=== PATIENT | male | born 1935 | race Caucasian/White ===

== ENCOUNTER 2017-04-29 14:31 | Inpatient (IN) | payer MEDICARE, BC, OTHER ==
[~2017-04-29] VITALS: Ht 180.3 cm; Wt 83.4 kg
--- NOTE | 2017-04-29 14:56 | PD ---
HPI Chief Complaint: Generalized Weakness Time Seen by Provider: 14:44 Travel History International Travel<30 days: No Contact w/Intl Traveler<30days: No History of Present Illness HPI Mr. Tim Trinidad is an 81y white male arrived to the emergency department via EMS for weakness with an onset about 1 hour ago. 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 He is mobile only wheelchair. Patient also has a history of seizures since his stroke along with hypertension and depression. EMS states that he did not have LOC, only takes aspirin as a blood thinner. He had a systolic blood pressure of 70 and increased to 130 after 500 cc bolus normal saline by EMS. His blood sugar was 105. His son walks in to the room and is able to give me a little more information about this patient. [facility] Social History Tobacco Use: No Allergies-Medications (Allergen,Severity, Reaction): Coded Allergies: No Known Allergies (Unverified , 04/29/17) Reported Meds & Prescriptions Reported Meds & Active Scripts Active Reported Gabapentin 300 Mg Cap 300 Mg PO BID Keppra (Levetiracetam) 500 Mg Tab 500 Mg PO DAILY Aspirin 325 Mg Tab 325 Mg PO DAILY Review of Systems Except as stated in HPI: all other systems reviewed are Neg Physical Exam Narrative 81-year-old white male well-developed well-nourished in no apparent distress aphasic SKIN: Focused skin assessment warm/dry. HEAD: Atraumatic. Normocephalic. EYES: Pupils with anisocoria, reactive to light and accommodating, No scleral icterus. No injection or drainage. ENT: No nasal bleeding or discharge. Mucous membranes pink and moist. NECK: Trachea midline. No JVD. CARDIOVASCULAR: Regular rate and rhythm. No murmur appreciated. RESPIRATORY: No accessory muscle use. Clear to auscultation. Breath sounds equal bilaterally. GASTROINTESTINAL: Abdomen soft, non-tender, nondistended. Hepatic and splenic margins not palpable. MUSCULOSKELETAL: No obvious deformities. No clubbing. No cyanosis. No edema. Lordotic posture. NEUROLOGICAL: Awake and alert. No obvious cranial nerve deficits. Aphasic, Difficulty following commands secondary to weakness but pt understands commands. Motor deficits upper left extremity 3/5 r, lower extremity 4/5 at initial assessment PSYCHIATRIC: Appropriate mood and affect; insight and judgment normal. Data Data Last Documented VS Vital Signs Date Time Temp Pulse Resp B/P (MAP) Pulse Ox O2 Delivery O2 Flow Rate FiO2 04/29/17 19:12 86 18 148/98 (115) 99 18 161/103 (122) 04/29/17 15:35 98 Room Air 04/29/17 14:58 98.5 Orders Orders Electrocardiogram (04/29/17 14:48) Complete Blood Count With Diff (04/29/17 14:48) Comprehensive Metabolic Panel (04/29/17 14:48) Act Partial Throm Time (Ptt) (04/29/17 14:48) Prothrombin Time / Inr (Pt) (04/29/17 14:48) Urinalysis - C+S If Indicated (04/29/17 14:48) Chest, Single Ap (04/29/17 14:48) Ct Brain W/O Iv Contrast(Rout) (04/29/17 14:48) Blood Glucose (04/29/17 14:48) Ecg Monitoring (04/29/17 14:48) Iv Access Insert/Monitor (04/29/17 14:48) Oximetry (04/29/17 14:48) Orthostatic Vital Signs (04/29/17 14:48) Sodium Chlorid 0.9% 500 Ml Inj (Ns 500 M (04/29/17 15:30) Potassium Chloride (Kcl) (04/29/17 16:00) Potassium Chloride (Kcl) (04/29/17 16:00) Admit Order (Ed Use Only) (04/29/17 19:18) Labs Laboratory Tests Test 04/29/17 15:04 04/29/17 16:42 White Blood Count 11.7 TH/MM3 Red Blood Count 4.44 MIL/MM3 Hemoglobin 14.0 GM/DL Hematocrit 40.9 % Mean Corpuscular Volume 92.2 FL Mean Corpuscular Hemoglobin 31.5 PG Mean Corpuscular Hemoglobin Concent 34.2 % Red Cell Distribution Width 13.6 % Platelet Count 261 TH/MM3 Mean Platelet Volume 7.8 FL Neutrophils (%) (Auto) 81.2 % Lymphocytes (%) (Auto) 11.7 % Monocytes (%) (Auto) 6.1 % Eosinophils (%) (Auto) 0.8 % Basophils (%) (Auto) 0.2 % Neutrophils # (Auto) 9.5 TH/MM3 Lymphocytes # (Auto) 1.4 TH/MM3 Monocytes # (Auto) 0.7 TH/MM3 Eosinophils # (Auto) 0.1 TH/MM3 Basophils # (Auto) 0.0 TH/MM3 CBC Comment DIFF FINAL Differential Comment Prothrombin Time 11.3 SEC Prothromb Time International Ratio 1.0 RATIO Activated Partial Thromboplast Time 19.1 SEC Blood Urea Nitrogen 17 MG/DL Creatinine 1.23 MG/DL Random Glucose 111 MG/DL Total Protein 6.4 GM/DL Albumin 3.3 GM/DL Calcium Level 8.5 MG/DL Alkaline Phosphatase 60 U/L Aspartate Amino Transf (AST/SGOT) 19 U/L Alanine Aminotransferase (ALT/SGPT) 21 U/L Total Bilirubin 0.6 MG/DL Sodium Level 142 MEQ/L Potassium Level 2.6 MEQ/L Chloride Level 106 MEQ/L Carbon Dioxide Level 26.1 MEQ/L Anion Gap 10 MEQ/L Estimat Glomerular Filtration Rate 51 ML/MIN Urine Color YELLOW Urine Turbidity CLEAR Urine pH 6.5 Urine Specific [place] 1.011 Urine Protein TRACE mg/dL Urine Glucose (UA) NEG mg/dL Urine Ketones NEG mg/dL Urine Occult Blood MOD Urine Nitrite NEG Urine Bilirubin NEG Urine Urobilinogen LESS THAN 2.0 MG/DL Urine Leukocyte Esterase NEG Urine RBC LESS THAN 1 /hpf Urine Squamous Epithelial Cells <1 /hpf Urine Hyaline Casts 4 /lpf Microscopic Urinalysis Comment CULT NOT INDICATED MDM Medical Decision Making Medical Screen Exam Complete: Yes Emergency Medical Condition: Yes Differential Diagnosis CVA versus TIA versus generalized weakness versus hyoglycemia Narrative Course Mr. Tim Trinidad, 1935, is an 81y white male arrived to the emergency department via EMS for weakness with an onset about 1 hour ago. 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 He is mobile only via wheelchair, according to pt. Patient also has a history of seizures since his stroke along with hypertension and depression. EMS states that he did not have LOC, only takes aspirin as a blood thinner. He had a systolic blood pressure of 70 and increased to 130 after 500 cc bolus normal saline by EMS. His blood sugar was 105. His son walked in to the room and was able to tell me a little more information about this patient. His son seems to know a good amount about his father. Physical Exam: Pt has trouble taking deep breaths and may be developing PNA vs atelectasis Imaging: no acute process. Labs: Potassium at 2.6. Given 40mEq Potassium with mild improvement in symptoms. Orthostatics will be done laying down and sitting. Dr. Doran and I attempted to get the patient out of bed but was unsuccessful. We will wait for son to return for another attempt. Pt wants to go home and not stay in the hospital tonight however, after a second attempt to get pt out of bed, he was unable to sit up or get out of bed. His PCP is Dr. Sow in [place]. Physician Communication Physician Communication I spoke with Dr Loja and she agreed to take patient as Obs. Diagnosis Primary Impression: Hypokalemia Additional Impression: Generalized weakness Admitting Information Admitting Physician Requests: Admit Condition: Stable Mercy Noel Apr 29, 2017 14:56
[2017-04-29 14:58] VITALS: BP 138/64; PULSE 86; RESP 18; TEMP 98.5; O2SAT 98
--- NOTE | 2017-04-29 15:04 | PD ---
Physical Exam Date Seen by Provider: Apr 29, 2017 Narrative Profound weakness Data Data Last Documented VS Vital Signs Date Time Temp Pulse Resp B/P (MAP) Pulse Ox O2 Delivery O2 Flow Rate FiO2 04/29/17 14:58 18 98 Room Air Orders Orders Electrocardiogram (04/29/17 14:48) Complete Blood Count With Diff (04/29/17 14:48) Comprehensive Metabolic Panel (04/29/17 14:48) Act Partial Throm Time (Ptt) (04/29/17 14:48) Prothrombin Time / Inr (Pt) (04/29/17 14:48) Urinalysis - C+S If Indicated (04/29/17 14:48) Chest, Single Ap (04/29/17 14:48) Ct Brain W/O Iv Contrast(Rout) (04/29/17 14:48) Blood Glucose (04/29/17 14:48) Ecg Monitoring (04/29/17 14:48) Iv Access Insert/Monitor (04/29/17 14:48) Oximetry (04/29/17 14:48) Orthostatic Vital Signs (04/29/17 14:48) MDM Supervised Visit with LORI: Yes Narrative Course I, Dr. Doran, have reviewed the advance practice practitioner's documentation and am in agreement, met with the patient face to face, made the diagnosis, and the medical decision making was done by me. *My assessment and Findings: Patient presents by EVAC with weakness. He has had a previous stroke affecting his right side. He is also aphasic as a result of that stroke. [place] was [place] [employer] [place] today and went to the bathroom. He was subsequently too weak to get up. EMS was called and he was brought to us. His initial SBP was very low. This was successfully treated with IVF but his weakness did not improve with fluids. FSBS was normal. Please see Mercy Noel's note for further details, lab and radiology results , final diagnosis and disposition. Maria C Doran MD Apr 29, 2017 15:04
[2017-04-29 15:16] LABS: AUTOMATED NEUTROPHIL # 9.5 TH/MM3 (1.8-7.7); BASOPHIL % 0.2 % (0.0-2.0); EOSINOPHIL # 0.1 TH/MM3 (0-0.4); EOSINOPHIL % 0.8 % (0.0-4.0); HEMATOCRIT 40.9 % (39.0-51.0); HEMO FLAGS DIFF FINAL; LYMPH % 11.7 % (9.0-44.0); LYMPHOCYTE # 1.4 TH/MM3 (1.0-4.8); MEAN CELL VOLUME 92.2 FL (80.0-100.0); MEAN CORPUSCULAR HEMOGLOBIN 31.5 PG (27.0-34.0); MEAN CORPUSCULAR HGB CONC 34.2 % (32.0-36.0); MONO % 6.1 % (0.0-8.0); NEUT % 81.2 % (16.0-70.0); PLATELET COUNT 261 TH/MM3 (150-450); RED BLOOD COUNT 4.44 MIL/MM3 (4.50-5.90); RED CELL DISTRIBUTION WIDTH 13.6 % (11.6-17.2); WHITE BLOOD COUNT 11.7 TH/MM3 (4.0-11.0)
[2017-04-29] MEDS ORDERED: SODIUM CHLORID 0.9% 500 ML INJ 500 ML IV ONE (15:30)
[2017-04-29] MEDS ORDERED: ASPI325T PO (15:31)
[2017-04-29] MEDS ORDERED: LEVE500 PO (15:31)
[2017-04-29] MEDS ORDERED: GABA300C5 PO (15:34)
[2017-04-29 15:39] LABS: ANION GAP 10 MEQ/L (5-15)
[2017-04-29 15:42] LABS: ALKALINE PHOSPHATASE 60 U/L (45-117); ALT (GPT) 21 U/L (12-78); AST (GOT) 19 U/L (15-37); BICARBONATE 26.1 MEQ/L (21.0-32.0); BLOOD UREA NITROGEN 17 MG/DL (7-18); CHLORIDE 106 MEQ/L (98-107); GLOMERULAR FILTRATION RATE 51 ML/MIN (>89); SODIUM (NA) 142 MEQ/L (136-145); TOTAL BILIRUBIN ADULT 0.6 MG/DL (0.2-1.0)
[2017-04-29 15:43] LABS: POTASSIUM 2.6 MEQ/L (3.5-5.1)
[2017-04-29 15:53] LABS: PROTHROMBIN TIME - PATIENT 11.3 SEC (9.8-11.6)
[2017-04-29] MEDS ORDERED: POTASSIUM CHLORIDE 20 MEQ CONTROLLED RELEASE TAB PO ONE ×2 (16:00)
--- NOTE | 2017-04-29 16:09 | RADRPT ---
EXAM DATE/TIME: 04/29/2017 15:33 [facility] COMPARISON: No previous studies available for comparison. INDICATIONS : Altered mental status. RADIATION DOSE: 56.35 CTDIvol (mGy) MEDICAL HISTORY : Non-responsive. SURGICAL HISTORY : Non-responsive. ENCOUNTER: Initial ACUITY: 1 day PAIN SCALE: Non-responsive LOCATION: Bilateral head TECHNIQUE: Multiple contiguous axial images were obtained of the head. Using automated exposure control and adj ustment of the mA and/or kV according to patient size, radiation dose was kept as low as reasonably a chievable to obtain optimal diagnostic quality images. DICOM format image data is available electro nically for review and comparison. FINDINGS: CEREBRUM: Largest inflammation defect involving nearly the entire left parietal and temporal lobes. Remainder o f the cerebrum appears intact. Expected dilatation of the left lateral ventricle. Ventricles are othe rwise within normal limits given degree of atrophy. No evidence of midline shift, mass lesion, hemor rhage or acute infarction. No extra-axial fluid collections are seen. POSTERIOR FOSSA: The cerebellum and brainstem are intact. The 4th ventricle is midline. The cerebellopontine angle i s unremarkable. EXTRACRANIAL: The visualized portion of the orbits is intact. SKULL: The calvaria is intact. No evidence of skull fracture. CONCLUSION: 1. 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 2. No acute intracranial abnormality. González Malcolm MD on April 29, 2017 at 16:05 Board Certified Radiologist. This report was verified electronically.
--- NOTE | 2017-04-29 16:10 | RADRPT ---
EXAM DATE/TIME: 04/29/2017 14:55 [facility] COMPARISON: No previous studies available for comparison. INDICATIONS : Shortness of breath and palpitations. MEDICAL HISTORY : Unobtainable SURGICAL HISTORY : Unobtainable ENCOUNTER: Initial ACUITY: 1 day PAIN SCORE: Non-responsive. LOCATION: chest FINDINGS: Minimal left basilar airspace disease and slight associated volume loss. Cardiomediastinal contours a re within normal limits. Bony thorax is intact. CONCLUSION: 1. Minimal left basilar airspace disease and volume loss consistent with atelectasis. Developing pneu monia cannot be entirely excluded in the appropriate clinical setting. González Malcolm MD on April 29, 2017 at 16:08 Board Certified Radiologist. This report was verified electronically.
[2017-04-29 17:11] LABS: APTT (PATIENT) 19.1 SEC (24.3-30.1)
[2017-04-29 17:15] LABS: BLOOD, URINE MOD (NEG); COMMENT (UR) CULT NOT INDICATED; CULTURE IF INDICATED CULT NOT INDICATED; GLUCOSE,URINE NEG (NEG); HYALINE CAST, URINE 4 /lpf (RARE); KETONE, URINE NEG (NEG); NITRITE,URINE NEG (NEG); PH, URINE 6.5 (5.0-8.5); SQUAMOUS EPITHELIAL CELL URINE <1 /hpf (0-5); URINE COLOR YELLOW (YELLW/STRAW)
[2017-04-29 19:12] VITALS: BP_SYST 148; BP_SYST 161; BP_DIAS 103; BP_DIAS 98; RESP 18
--- NOTE | 2017-04-29 19:29 | HHI.HP ---
[facility] Unknown Admission Diagnosis Weakness, hypokalemia Diagnoses: (1) Near syncope Diagnosis: Principal (2) Dehydration Diagnosis: Principal (3) Hypotension Diagnosis: Principal (4) Hypokalemia Diagnosis: Principal (5) Leukocytosis Diagnosis: Principal (6) Generalized weakness Diagnosis: Principal (7) Seizure disorder Diagnosis: Principal Travel History International Travel<30 Days: No Contact w/Intl Traveler <30 Da: No Traveled to Known Affected Are: No History of Present Illness Pt is an 81-year-old male, Tim Trinidad [birth year], w/ a 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 Pt had apparent near syncopal event while in grocery store bathroom, unclear if head trauma, no reported LOC. Upon EMS arrival, pt noted to have systolic BP 70's s/p IVF w/ improvement. Unable to obtain history from patient secondary to expressive aphasia, at baseline. On arrival, BP 138/64, HR 86, O2 sat 98% on RA, Afebrile. Orthostatic Vital Signs +. WBC 11.7. K+ 2.6. GFR 51. INR 1.0. UA negative. CT Head with prior large left MCA infarct, no acute findings. CXR with minimal left basilar airspace disease and volume loss consistent with atelectasis, possible early developing pneumonia. S/p IVF in ER w/ improvement. Review of Systems Except as stated in HPI: all other systems reviewed are Neg ROS: Unable to obtain secondary to expressive aphasia. Past Family Social History Past Medical History PMH: CVA w/ Residual Expressive Aphasia and Right-Sided Weakness and Seizure Disorder Past Surgical History PAST SURGICAL HISTORY: None Allergies: Coded Allergies: No Known Allergies (Unverified , 04/29/17) Family History PAST FAMILY HISTORY: Reviewed. No h/o DM or CAD Social History PAST SOCIAL HISTORY: Negative for alcohol, tobacco or drugs. Physical Exam Vital Signs Vital Signs Date Time Temp Pulse Resp B/P (MAP) Pulse Ox O2 Delivery O2 Flow Rate FiO2 04/29/17 19:12 86 18 148/98 (115) 99 18 161/103 (122) 04/29/17 15:35 82 18 98 Room Air 04/29/17 14:58 98.5 86 18 138/64 (88) 98 Room Air 04/29/17 14:58 18 98 Room Air Physical Exam PE: GENERAL: Elderly white male in no acute distress. Expressive aphasia, at baseline HEENT: PERRLA, EOMI. No scleral icterus or conjunctival pallor. No lid lag or facial droop. CARDIOVASCULAR: Regular rate and rhythm. No obvious murmurs to auscultation. No chest tenderness to palpation. RESPIRATORY: No obvious rhonchi or wheezing. Clear to auscultation. Breath sounds equal bilaterally. GASTROINTESTINAL: Abdomen soft, non-tender, nondistended. BS normal. MUSCULOSKELETAL: Extremities without clubbing, cyanosis, or edema. No obvious deformities. NEUROLOGICAL: Awake, alert. No new focal neurologic deficits, right-sided hemiparesis at baseline. Moving both upper and lower extremities spontaneously. Laboratory Laboratory Tests Test 04/29/17 15:04 04/29/17 16:42 White Blood Count 11.7 Red Blood Count 4.44 Hemoglobin 14.0 Hematocrit 40.9 Mean Corpuscular Volume 92.2 Mean Corpuscular Hemoglobin 31.5 Mean Corpuscular Hemoglobin Concent 34.2 Red Cell Distribution Width 13.6 Platelet Count 261 Mean Platelet Volume 7.8 Neutrophils (%) (Auto) 81.2 Lymphocytes (%) (Auto) 11.7 Monocytes (%) (Auto) 6.1 Eosinophils (%) (Auto) 0.8 Basophils (%) (Auto) 0.2 Neutrophils # (Auto) 9.5 Lymphocytes # (Auto) 1.4 Monocytes # (Auto) 0.7 Eosinophils # (Auto) 0.1 Basophils # (Auto) 0.0 CBC Comment DIFF FINAL Differential Comment Prothrombin Time 11.3 Prothromb Time International Ratio 1.0 Activated Partial Thromboplast Time 19.1 Blood Urea Nitrogen 17 Creatinine 1.23 Random Glucose 111 Total Protein 6.4 Albumin 3.3 Calcium Level 8.5 Alkaline Phosphatase 60 Aspartate Amino Transf (AST/SGOT) 19 Alanine Aminotransferase (ALT/SGPT) 21 Total Bilirubin 0.6 Sodium Level 142 Potassium Level 2.6 Chloride Level 106 Carbon Dioxide Level 26.1 Anion Gap 10 Estimat Glomerular Filtration Rate 51 Urine Color YELLOW Urine Turbidity CLEAR Urine pH 6.5 Urine Specific [place] 1.011 Urine Protein TRACE Urine Glucose (UA) NEG Urine Ketones NEG Urine Occult Blood MOD Urine Nitrite NEG Urine Bilirubin NEG Urine Urobilinogen LESS THAN 2.0 Urine Leukocyte Esterase NEG Urine RBC LESS THAN 1 Urine Squamous Epithelial Cells <1 Urine Hyaline Casts 4 Microscopic Urinalysis Comment CULT NOT INDICATED Result Diagram: 04/29/17 1504 04/29/17 1504 Caprini VTE Risk Assessment Caprini VTE Risk Assessment: Mod/High Risk (score >= 2) Caprini Risk Assessment Model Point Value = 1 Point Value = 2 Point Value = 3 Point Value = 5 Age 41-60 Minor surgery BMI > 25 kg/m2 Swollen legs Varicose veins or History of unexplained or recurrent spontaneous Oral contraceptives or hormone replacement Sepsis (< 1 month) Serious lung disease, including pneumonia (< 1 month) Abnormal pulmonary function Acute myocardial infarction Congestive heart failure (< 1 month) History of inflammatory bowel disease Medical patient at bed rest Age 61-74 Arthroscopic surgery Major open surgery (> 45 min) Laparoscopic surgery (> 45 min) Malignancy Confined to bed (> 72 hours) Immobilizing plaster cast Central venous access Age >= 75 History of VTE Family history of VTE Factor V Leiden Prothrombin [id number] Lupus anticoagulant Anticardiolipin antibodies Elevated serum homocysteine Heparin-induced thrombocytopenia Other congenital or acquired thrombophilia Stroke (< 1 month) Elective arthroplasty Hip, pelvis, or leg fracture Acute spinal cord injury (< 1 month) Prophylaxis Regimen Total Risk Factor Score Risk Level Prophylaxis Regimen 0-1 Low Early ambulation 2 Moderate Order ONE of the following: *Sequential Compression Device (SCD) *Heparin 5000 units SQ BID 3-4 Higher Order ONE of the following medications: *Heparin 5000 units SQ TID *Enoxaparin/Lovenox 40 mg SQ daily (WT < 150 kg, CrCl > 30 mL/min) *Enoxaparin/Lovenox 30 mg SQ daily (WT < 150 kg, CrCl > 10-29 mL/min) *Enoxaparin/Lovenox 30 mg SQ BID (WT < 150 kg, CrCl > 30 mL/min) AND/OR *Sequential Compression Device (SCD) 5 or more Highest Order ONE of the following medications: *Heparin 5000 units SQ TID (Preferred with Epidurals) *Enoxaparin/Lovenox 40 mg SQ daily (WT < 150 kg, CrCl > 30 mL/min) *Enoxaparin/Lovenox 30 mg SQ daily (WT < 150 kg, CrCl > 10-29 mL/min) *Enoxaparin/Lovenox 30 mg SQ BID (WT < 150 kg, CrCl > 30 mL/min) AND *Sequential Compression Device (SCD) Assessment and Plan Problem List: (1) Near syncope ICD Code: R55 - Syncope and collapse (2) Dehydration ICD Code: E86.0 - Dehydration (3) Hypotension ICD Code: I95.9 - Hypotension, unspecified (4) Hypokalemia ICD Code: E87.6 - Hypokalemia Status: Acute (5) Leukocytosis ICD Code: D72.829 - Elevated white blood cell count, unspecified (6) Generalized weakness ICD Code: R53.1 - Weakness Status: Acute (7) Seizure disorder ICD Code: G40.909 - Epilepsy, unspecified, not intractable, without status epilepticus Assessment and Plan A/P: 1. Near Syncope: likely secondary to dehydration, no reported LOC, unclear if head trauma. CT Head w/ prior large left MCA infarct, no acute findings, images reviewed by me. Admit for Observation, telemetry, continue IVF. Trop negative, EKG w/ no acute ischemia. Check serial cardiac enzymes for trend. 2. Dehydration: GFR 51, BUN/Creatinine normal, U/a negative. IVF for hydration, repeat labs in am. 3. Hypotension: EMS reporting systolic BP 70's, s/p IVF w/ improvement. + Orthostatic Vital Signs in ER, will continue w/ IVF, monitor BP. 4. Hypokalemia: K+ 2.6, s/p replacement in ER. Will recheck in am, replace as needed. 5. Leukocytosis: WBC 11. No obvious source of infection, however CXR w/ left base atelectasis, possible early developing PNA, images reviewed by me. Asymptomatic at this time. Hold off on antibiotics, repeat labs in am. 6. Generalized Weakness: likely multifactorial-dehydration/deconditioning. IVF as above, PT for eval/tx. 7. Seizure Disorder: Chronic. No reported seizure activity. Resume home medications. 8. Social work for d/c planning as needed. 9. Case discussed w/ ER physician at length. Erica Loja MD Apr 29, 2017 19:29
[2017-04-29] MEDS ORDERED: ACETAMINOPHEN 325 MG TAB PO PRN (19:30)
[2017-04-29] MEDS ORDERED: SODIUM CHLORIDE 0.9% FLUSH 10 ML FLUSH IV FLUSH PRN (19:30)
[2017-04-29] MEDS ORDERED: LACTULOSE SYRUP 20 GM/30 ML CUP PO PRN (19:30)
[2017-04-29] MEDS ORDERED: SENNOSIDES 8.6 MG TAB PO PRN (19:30)
[2017-04-29] MEDS ORDERED: BISACODYL 10 MG SUPP RECTAL PRN (19:30)
[2017-04-29] MEDS ORDERED: ONDANSETRON HCL 4 MG/2 ML VIAL IVP PRN (19:30)
[2017-04-29] MEDS ORDERED: MAGNESIUM HYDROXIDE SUSP 30 ML CUP PO PRN (19:30)
[2017-04-29] MEDS: SODIUM CHLORIDE 0.9% FLUSH 10 ML FLUSH IV FLUSH SCH (19:58)
[2017-04-29] MEDS: SODIUM CHLOR 0.9% 1000 ML INJ 1,000 ML IV SCH (20:03)
[2017-04-30] MEDS: DOCUSATE SODIUM 50 MG/SENNA 8.6 MG TAB PO SCH ×3 (00:06→20:18)
[2017-04-30] MEDS: GABAPENTIN 300 MG CAP PO SCH ×3 (00:06→20:18)
[2017-04-30] MEDS: ACETAMINOPHEN/HYDROcodone 325 MG/5 MG TAB PO PRN (00:15)
--- NOTE | 2017-04-30 01:22 | EKG ---
Date Performed: 04/29/2017 Time Performed: 14:35:33 PTAGE: 89 years EKG: Sinus rhythm WITH FIRST DEGREE AV BLOCK WITH FREQUENT VENTRICULAR PREMATURE COMPLEXES NONSPECIFIC INTRAVENTRICULA R CONDUCTION DELAY LEFT ANTERIOR FASCICULAR BLOCK ABNORMAL ECG NO PREVIOUS TRACING DOCTOR: Denis Ward Interpretating Date/Time 04/30/2017 01:21:12
[2017-04-30 01:31] VITALS: BP 155/72; PULSE 78; RESP 18; TEMP 98.8; O2SAT 97
[2017-04-30] MEDS: SODIUM CHLOR 0.9% 1000 ML INJ 1,000 ML IV SCH ×2 (05:18→21:36)
[2017-04-30 07:56] VITALS: PULSE 70
[2017-04-30] MEDS ORDERED: POTASSIUM CHLORIDE 20 MEQ CONTROLLED RELEASE TAB PO ONE ×2 (08:15→13:00)
[2017-04-30] MEDS: SODIUM CHLORIDE 0.9% FLUSH 10 ML FLUSH IV FLUSH SCH ×2 (09:00→21:35)
[2017-04-30] MEDS ORDERED: levETIRAcetam 500 MG TAB PO SCH (09:00)
[2017-04-30] MEDS: ASPIRIN 325 MG TAB PO SCH (09:30)
[2017-04-30 10:25] LABS: AUTOMATED NEUTROPHIL # 12.7 TH/MM3 (1.8-7.7); BASOPHIL % 0.2 % (0.0-2.0); EOSINOPHIL % 0.1 % (0.0-4.0); HEMATOCRIT 44.2 % (39.0-51.0); HEMO FLAGS DIFF FINAL; LYMPHOCYTE # 0.9 TH/MM3 (1.0-4.8); MEAN CELL VOLUME 93.1 FL (80.0-100.0); MEAN CORPUSCULAR HEMOGLOBIN 31.7 PG (27.0-34.0); MEAN CORPUSCULAR HGB CONC 34.1 % (32.0-36.0); MONO % 7.7 % (0.0-8.0); PLATELET COUNT 258 TH/MM3 (150-450); RED BLOOD COUNT 4.74 MIL/MM3 (4.50-5.90); RED CELL DISTRIBUTION WIDTH 13.9 % (11.6-17.2); WHITE BLOOD COUNT 14.8 TH/MM3 (4.0-11.0)
[2017-04-30 10:42] VITALS: BP 130/65; PULSE 64; RESP 16; O2SAT 98
[2017-04-30 11:05] LABS: ALKALINE PHOSPHATASE 64 U/L (45-117); ALT (GPT) 52 U/L (12-78); ANION GAP 10 MEQ/L (5-15); AST (GOT) 137 U/L (15-37); BICARBONATE 27.8 MEQ/L (21.0-32.0); BLOOD UREA NITROGEN 15 MG/DL (7-18); CHLORIDE 104 MEQ/L (98-107); GLOMERULAR FILTRATION RATE 58 ML/MIN (>89); MAGNESIUM 1.6 MG/DL (1.5-2.5); SODIUM (NA) 142 MEQ/L (136-145); TOTAL BILIRUBIN ADULT 1.2 MG/DL (0.2-1.0)
[2017-04-30 11:10] LABS: POTASSIUM 2.8 MEQ/L (3.5-5.1)
--- NOTE | 2017-04-30 12:06 | HHI.PR ---
Subjective Remarks Follow up for near syncope. The patient has severe expressive aphasia therefore history is very limited. He points to the right shoulder and lateral thorax, appears to be complaining of pain. He is able to say that he did not fully lose consciousness yesterday. He denies hitting his head. He denies any recent vomiting or diarrhea. He does not have any other complaints at this time. Objective Vitals Vital Signs Date Time Temp Pulse Resp B/P (MAP) Pulse Ox O2 Delivery O2 Flow Rate FiO2 04/30/17 10:42 64 16 130/65 (86) 98 04/30/17 08:54 04/30/17 07:56 70 04/30/17 01:31 98.8 78 18 155/72 (99) 97 04/29/17 19:12 86 18 148/98 (115) 99 18 161/103 (122) 04/29/17 15:35 82 18 98 Room Air 04/29/17 14:58 98.5 86 18 138/64 (88) 98 Room Air 04/29/17 14:58 18 98 Room Air I/O 04/29/17 04/29/17 04/29/17 04/30/17 04/30/17 04/30/17 07:00 15:00 23:00 07:00 15:00 23:00 Intake Total 500 ml Balance 500 ml Intake IV Total 500 ml Result Diagram: 04/30/17 0945 04/30/17 0945 Imaging Last Impressions Head CT 04/29/17 1448 Signed Impressions: Service Date/Time: Saturday, April 29, 2017 15:33 - CONCLUSION: 1. 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 2. No acute intracranial abnormality. González Malcolm MD Chest X-Ray 04/29/17 1448 Signed Impressions: Service Date/Time: Saturday, April 29, 2017 14:55 - CONCLUSION: 1. Minimal left basilar airspace disease and volume loss consistent with atelectasis. Developing pneumonia cannot be entirely excluded in the appropriate clinical setting. González Malcolm MD Objective Remarks GENERAL: Well-nourished, well-developed elderly male patient in [facility]. SKIN: Warm and dry. No rash. HEAD: Normocephalic. Atraumatic. EYES: Pupils equal and round. No scleral icterus. No injection or drainage. ENT: No nasal bleeding or discharge. Mucous membranes pink and moist. NECK: Supple. Trachea midline. CARDIOVASCULAR: Regular rate and rhythm. S1, S2 noted. No murmur appreciated. RESPIRATORY: No accessory muscle use. Clear to auscultation. Breath sounds equal bilaterally. GASTROINTESTINAL: Abdomen soft, non-tender, nondistended. Normoactive bowel sounds x4. MUSCULOSKELETAL: No obvious deformities. Extremities without clubbing, cyanosis , or edema. NEUROLOGICAL: Awake and alert. Right sided hemiparesis. Expressive aphasia. Medications and IVs Current Medications Medications (Trade) Dose Ordered Sig/Fidel Route Start Time Stop Time Status Last Admin Sodium Chloride 1,000 ml @ 100 mls/hr Q10H IV 04/29/17 19:23 04/29/17 20:03 (NS Flush) 2 ml UNSCH PRN IV FLUSH 04/29/17 19:30 (NS Flush) 2 ml BID IV FLUSH 04/29/17 21:00 (Zofran Inj) 4 mg Q6H PRN IVP 04/29/17 19:30 (Tylenol) 650 mg Q6H PRN PO 04/29/17 19:30 ([place] 5-325 Mg) 1 tab Q4H PRN PO 04/29/17 19:30 04/30/17 00:15 ([place] 10-325 Mg) 1 tab Q4H PRN PO 04/29/17 19:30 (Amrita-Colace) 1 tab BID PO 04/29/17 21:00 04/30/17 09:30 (Milk Of Magnesia Liq) 30 ml Q12H PRN PO 04/29/17 19:30 (Senokot) 17.2 mg Q12H PRN PO 04/29/17 19:30 (Dulcolax Supp) 10 mg DAILY PRN RECTAL 04/29/17 19:30 (Lactulose Liq) 30 ml DAILY PRN PO 04/29/17 19:30 (Aspirin) 325 mg DAILY PO 04/30/17 09:00 04/30/17 09:30 (Neurontin) 300 mg BID PO 04/29/17 21:00 04/30/17 09:30 (Keppra) 500 mg DAILY PO 04/30/17 09:00 04/30/17 09:30 A/P Problem List: (1) Near syncope ICD Code: R55 - Syncope and collapse (2) Dehydration ICD Code: E86.0 - Dehydration (3) Hypotension ICD Code: I95.9 - Hypotension, unspecified (4) Hypokalemia ICD Code: E87.6 - Hypokalemia Status: Acute (5) Leukocytosis ICD Code: D72.829 - Elevated white blood cell count, unspecified (6) Generalized weakness ICD Code: R53.1 - Weakness Status: Acute (7) Seizure disorder ICD Code: G40.909 - Epilepsy, unspecified, not intractable, without status epilepticus Assessment and Plan 81-year-old male, Tim Trinidad 37, w/ a 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 Near Syncope: likely secondary to dehydration, no reported LOC, unclear if head trauma. CT Head w/ prior large left MCA infarct, no acute findings, images reviewed by me. Monitor on telemetry. Continue IVF. Initial trop negative, EKG reviewed w/ no acute ischemia. Check serial cardiac enzymes and EKG to rule out ACS. Check echo. Check Carotid U/S. Consult neurology. Dehydration: GFR 51, BUN/Creatinine normal, U/a negative. IVF for hydration, repeat labs show mild improvement. Hypotension: EMS reporting systolic BP 70's, s/p IVF w/ improvement. Patient denies being on any antihypertensives. +Orthostatic Vital Signs in ER, continue w/ IVF, monitor BP. Hypokalemia/Hypomagnesemia: K+ 2.6, s/p replacement in ER. Mag 1.6, give IV Mag Sulfate 1G x2. Repeat K 2.8 today, give additional IV and po KCl. Repeat labs this afternoon, replace as needed Community Acquired Pneumonia: WBC 14.8K. CXR with possible early developing PNA , images reviewed by me. Will start on IV Rocephin/Azithro. Monitor for improvement. Generalized Weakness: likely multifactorial-dehydration/deconditioning. IVF as above, PT for eval/tx. Seizure Disorder: Chronic. No reported seizure activity. Resume home medications. DVT Prophylaxis: teds/SCDs Terese Mcdermott PA-C Apr 30, 2017 12:05 pm
[2017-04-30] MEDS: MAGNESIUM SULFATE 1 GM PREMIX 100 ML IV SCH ×2 (12:11→13:15)
--- NOTE | 2017-04-30 13:05 | RADRPT ---
EXAM DATE/TIME: 04/30/2017 10:52 CORRECTION Corrected on: May 02, 2017; Added Medical and Surgical History [facility] COMPARISON: No previous studies available for comparison. INDICATIONS : Syncope. MEDICAL HISTORY : Hypertension. Cerebral vascular accident. A fib. Prostate cancer. SURGICAL HISTORY : Prostate surgery. ENCOUNTER: Initial ACUITY: 1 day PAIN SCORE: 10 LOCATION: Bilateral neck PEAK SYSTOLIC VELOCITIES (cm/sec): ICA/CCA RATIO: Right: 0.8 Left: UTO ICA: Right: 58.1 Left: UTO CCA: Right: 72.4 Left: UTO ECA: Right: 104.2 Left: UTO VERTEBRAL: Right: UTO absent Left: UTO absent Elevated flow velocities and ICA/CCA ratios have been found to correlate with increased degrees of vessel stenosis, calculated as percentage of diameter relative to a normal segment of distal ICA/CCA FINDINGS: The patient would only allow examination of the right side RIGHT CAROTID: No significant stenosis is visualized. The waveforms are within normal limits. LEFT CAROTID: The patient refused exam. VERTEBRAL ARTERIES: Could not finish exam. MISCELLANEOUS: None. CONCLUSION: The right side is unremarkable except for mild atherosclerotic disease. The patient refused imaging o f the vertebrals and the left carotid system. Elder Paz MD on April 30, 2017 at 13:03 Board Certified Radiologist. This report was verified electronically.
[2017-04-30] MEDS: POTASSIUM CHLOR 20 MEQ PREMIX 100 ML IV SCH ×2 (13:31→18:31)
[2017-04-30] MEDS: ACETAMINOPHEN/HYDROcodone 325 MG/10 MG TAB PO PRN ×2 (14:18→18:31)
[2017-04-30 16:00] VITALS: BP 134/64; PULSE 63; RESP 17; TEMP 97.4; O2SAT 98
--- NOTE | 2017-04-30 16:14 | RADRPT ---
EXAM DATE/TIME: 04/30/2017 15:41 [facility] COMPARISON: No previous studies available for comparison. INDICATIONS : Right shouler and proximal humerous pain. MEDICAL HISTORY : Stroke. SURGICAL HISTORY : None. ENCOUNTER: Initial ACUITY: 1 day PAIN SCORE: 3/10 LOCATION: Right shoulder. FINDINGS: Two view examination of the right shoulder demonstrates no evidence of fracture or dislocation. The glenohumeral and acromioclavicular joints are maintained. Bony mineralization is normal. CONCLUSION: Unremarkable limited examination of the right shoulder. Elder Paz MD on April 30, 2017 at 16:13 Board Certified Radiologist. This report was verified electronically.
--- NOTE | 2017-04-30 16:16 | RADRPT ---
EXAM DATE/TIME: 04/30/2017 15:44 [facility] COMPARISON: No previous studies available for comparison. INDICATIONS : Rib pain. MEDICAL HISTORY : Stroke. SURGICAL HISTORY : None. ENCOUNTER: Initial ACUITY: 1 day PAIN SCORE: 3/10 LOCATION: Bilateral ribs. FINDINGS: Multiple views of both ribs were performed. There is no evidence of displaced fracture. No destruct tisha lesions or areas of periosteal thickening are seen. CONCLUSION: Unremarkable examination of the ribs. Elder Paz MD on April 30, 2017 at 16:15 Board Certified Radiologist. This report was verified electronically.
[2017-04-30] MEDS: cefTRIAXone INJ 1,000 MG in SODIUM CHLORIDE 0.9% INJ 100 ML IV SCH (17:13)
[2017-04-30] MEDS: AZITHROMYCIN INJ 500 MG in SODIUM CHLOR 0.9% 250 ML INJ 250 ML IV SCH (17:42)
--- NOTE | 2017-04-30 17:55 | MB ---
cc: TASHA PATINO M.D. DATE OF CONSULTATION 04/30/2017 REASON FOR CONSULTATION Near syncope. HISTORY OF PRESENT ILLNESS This is a the patient who has a previous left hemisphere stroke with expressive aphasia, right hemiplegia, as well as secondary seizures. He came by EMS due to an episode while in the grocery store restroom, had a new loss of consciousness but did not actually lose consciousness. He fell, unclear if he had any head trauma but he does complain of some right-sided weakness. On arrival was found have a low systolic pressure in the 70s and was given IV fluids with improvement. No tonic-clonic activity or seizure activity identified. PAST MEDICAL HISTORY A history of previous left MCA stroke with aphasia, right hemiplegia, history of secondary seizures. MEDICATIONS His current medications are: 1. Azithromycin. 2. Potassium. 3. Ceftriaxone. 4. Aspirin 325 milligrams daily. 5. Keppra 500 mg daily. 6. Gabapentin 300 mg b.i.d. 7. Zofran p.r.n. 8. Tylenol as needed. 9. Hydrocodone p.r.n. NEUROLOGIC EXAMINATION VITAL SIGNS: His blood pressure is 148/98 supine, pulse is 82, respirations 18, temperature 98 degrees. Higher cortical functions, he is alert. He had an expressive aphasia. He cannot repeat simple phrases, cannot talk. He can follow simple commands. Cranial nerves: Right upper motor neuron VII palsy, otherwise normal. On motor exam he has a fairly dense right hemiplegia with a 1/5 strength right arm and right leg with normal strength on the left. Reflexes symmetric. IMAGING CT brain shows an old left MCA stroke. No acute change present. Carotid ultrasound, the patient did not cooperate with the full examination. The right carotid is normal. He refused left carotid exam. Refused echocardiogram. LABORATORY DATA White count 14,800, hemoglobin 15, hematocrit 44%, platelet count 258,000. Sodium is 142, potassium 2.8, chloride 104, CO2 27, BUN is 15, creatinine 1.09, GFR is 858, glucose 132. IMPRESSION Near-syncopal episode. Doubt seizure probably related to orthostatic hypotension probably from dehydration given the fact that his systolic pressure was in the 70s RECOMMENDATIONS Increase Keppra 500 b.i.d. because he does have a history of seizures in the past. If he is operative would repeat the echocardiogram. Also obtain an EEG although again I doubt seizure activity. MD MIESHA Irving/ROQUE /2:45 PM /5:41 PM
[2017-04-30] MEDS: levETIRAcetam 500 MG TAB PO SCH (20:18)
[2017-04-30 21:00] VITALS: BP 130/60; PULSE 71; RESP 17; TEMP 98; O2SAT 98
[2017-04-30 22:01] VITALS: PULSE 70
[2017-05-01] VITALS (7 sets, daily range): BP systolic 123–174; BP diastolic 55–82; PULSE 66–83; RESP 17–20; TEMP 97.2–99.8; O2SAT 94–97
[2017-05-01] MEDS: ACETAMINOPHEN/HYDROcodone 325 MG/10 MG TAB PO PRN (00:53)
[2017-05-01] MEDS: SODIUM CHLOR 0.9% 1000 ML INJ 1,000 ML IV SCH ×3 (01:23→21:23)
[2017-05-01] MEDS: DOCUSATE SODIUM 50 MG/SENNA 8.6 MG TAB PO SCH ×2 (08:56→21:44)
[2017-05-01] MEDS: ASPIRIN 325 MG TAB PO SCH (08:56)
[2017-05-01] MEDS: levETIRAcetam 500 MG TAB PO SCH ×2 (08:56→21:44)
[2017-05-01] MEDS: GABAPENTIN 300 MG CAP PO SCH ×2 (08:56→21:44)
[2017-05-01] MEDS: SODIUM CHLORIDE 0.9% FLUSH 10 ML FLUSH IV FLUSH SCH ×2 (08:56→21:48)
[2017-05-01 10:47] LABS: AUTOMATED NEUTROPHIL # 11.8 TH/MM3 (1.8-7.7); BASOPHIL # 0.1 TH/MM3 (0-0.2); BASOPHIL % 0.4 % (0.0-2.0); EOSINOPHIL # 0.1 TH/MM3 (0-0.4); EOSINOPHIL % 0.6 % (0.0-4.0); HEMATOCRIT 45.2 % (39.0-51.0); LYMPH % 10.1 % (9.0-44.0); LYMPHOCYTE # 1.5 TH/MM3 (1.0-4.8); MEAN CORPUSCULAR HEMOGLOBIN 31.9 PG (27.0-34.0); MONO % 7.8 % (0.0-8.0); NEUT % 81.1 % (16.0-70.0); PLATELET COUNT 226 TH/MM3 (150-450); RED BLOOD COUNT 4.81 MIL/MM3 (4.50-5.90); RED CELL DISTRIBUTION WIDTH 13.9 % (11.6-17.2); WHITE BLOOD COUNT 14.5 TH/MM3 (4.0-11.0)
[2017-05-01 10:49] LABS: HEMO FLAGS AUTO DIFF
[2017-05-01 10:59] LABS: BICARBONATE 26.6 MEQ/L (21.0-32.0); MAGNESIUM 1.9 MG/DL (1.5-2.5); POTASSIUM 3.4 MEQ/L (3.5-5.1)
[2017-05-01 11:09] LABS: HDL CHOLESTEROL 64.2 MG/DL (40.0-60.0)
[2017-05-01] MEDS: cefTRIAXone INJ 1,000 MG in SODIUM CHLORIDE 0.9% INJ 100 ML IV SCH (12:06)
[2017-05-01] MEDS: ACETAMINOPHEN/HYDROcodone 325 MG/5 MG TAB PO PRN ×2 (12:17→23:38)
[2017-05-01 12:18] LABS: SCAN/DIFF AUTO DIFF CONFIRMED
[2017-05-01] MEDS: AZITHROMYCIN INJ 500 MG in SODIUM CHLOR 0.9% 250 ML INJ 250 ML IV SCH (14:53)
--- NOTE | 2017-05-01 19:19 | HHI.PR ---
Subjective Remarks Patient seen today around noon. Patient with difficulty communicating. Appears to deny pain. Discussed with fire hydrant operator at bedside. Critical state to make sure patient gets studies done. Objective Vital Signs Date Time Temp Pulse Resp B/P (MAP) Pulse Ox O2 Delivery O2 Flow Rate FiO2 05/01/17 15:47 97.2 82 20 155/72 (99) 97 05/01/17 12:15 99.2 77 20 126/65 (85) 95 05/01/17 10:24 66 05/01/17 08:37 98.5 70 20 126/58 (80) 95 05/01/17 05:39 97.6 78 17 123/55 (77) 96 05/01/17 02:12 18 05/01/17 01:18 97.8 83 17 163/77 (105) 94 155/75 (101) 04/30/17 22:01 70 04/30/17 21:00 98.0 71 17 130/60 (83) 98 I/O 04/30/17 04/30/17 04/30/17 05/01/17 05/01/17 05/01/17 07:00 15:00 23:00 07:00 15:00 23:00 Intake Total 100 ml 2480 ml 718 ml 100 ml 650 ml Balance 100 ml 2480 ml 718 ml 100 ml 650 ml Intake Oral 120 ml 0 ml IV Total 100 ml 2480 ml 598 ml 100 ml 650 ml # Voids 4 3 # Bowel Movements 1 Result Diagram: 05/01/17 0941 05/01/17 0941 Objective Remarks GENERAL: patient lying in bed. Appears comfortable. Difficult communication, slurred speech ,apparently baseline SKIN: Warm and dry. HEAD: Normocephalic. EYES: No scleral icterus. No injection or drainage. NECK: Supple, trachea midline. No JVD or lymphadenopathy. CARDIOVASCULAR: Regular rate and rhythm without murmurs, gallops, or rubs. RESPIRATORY: Breath sounds equal bilaterally. No accessory muscle use. GASTROINTESTINAL: Abdomen soft, non-tender, nondistended. MUSCULOSKELETAL: No cyanosis, or edema. BACK: Nontender without obvious deformity. No CVA tenderness. A/P Assessment and Plan ==== 05/01/17 //Presyncope. Possible seizure. EEG and echocardiogram pending. Patient refused left-sided ultrasound carotids. No bruit on exam. Continue to await results of studies. Appreciate nephrology assistance. Discharge when cleared by neurology. //Continue antibiotics for pneumonia. //hypokalemia. Improved. 3.4. Follow-up tomorrow. 81-year-old male, w/ a PMH of CVA w/ Residual Expressive Aphasia and Right- Sided Weakness and Seizure Disorder who was brought to the ER by EMS secondary to near syncopal event. Near Syncope: likely secondary to dehydration, no reported LOC, unclear if head trauma. CT Head w/ prior large left MCA infarct, no acute findings, images reviewed by me. Monitor on telemetry. Continue IVF. Initial trop negative, EKG reviewed w/ no acute ischemia. Check serial cardiac enzymes and EKG to rule out ACS. Check echo. Check Carotid U/S. Consult neurology. Dehydration: GFR 51, BUN/Creatinine normal, U/a negative. IVF for hydration, repeat labs show mild improvement. Hypotension: EMS reporting systolic BP 70's, s/p IVF w/ improvement. Patient denies being on any antihypertensives. +Orthostatic Vital Signs in ER, continue w/ IVF, monitor BP. Hypokalemia/Hypomagnesemia: K+ 2.6, s/p replacement in ER. Mag 1.6, give IV Mag Sulfate 1G x2. Repeat K 2.8 today, give additional IV and po KCl. Repeat labs this afternoon, replace as needed Community Acquired Pneumonia: WBC 14.8K. CXR with possible early developing PNA , images reviewed by me. Will start on IV Rocephin/Azithro. Monitor for improvement. Generalized Weakness: likely multifactorial-dehydration/deconditioning. IVF as above, PT for eval/tx. //Possible pneumonia. With findings on chest x-ray, leukocytosis. Continue antibiotics. Seizure Disorder: Chronic. No reported seizure activity. Resume home medications. DVT Prophylaxis: teds/SCDs Discharge Planning discharge when cleared by neurology. Echocardiogram and EEG pending. PT and OT following Appreciate case management assistance. Mj Kapadia MD May 01, 2017 19:19
[2017-05-01] MEDS ORDERED: POTASSIUM CHLORIDE 20 MEQ CONTROLLED RELEASE TAB PO ONE (19:30)
--- NOTE | 2017-05-01 19:35 | HHI.PR ---
Review/Management Diagnosis syncope--probably due to hypotension old left MCA stroke with aphasia and RHP History of SZ---on keppra Plan EEG Diagnosis/Plan: Subjective Subjective Comments No acute events reported No further episodes of LOC Active Medications Current Medications Medications (Trade) Dose Ordered Sig/Fidel Route Start Time Stop Time Status Last Admin Sodium Chloride 1,000 ml @ 100 mls/hr Q10H IV 04/29/17 19:23 05/01/17 11:22 (NS Flush) 2 ml UNSCH PRN IV FLUSH 04/29/17 19:30 (NS Flush) 2 ml BID IV FLUSH 04/29/17 21:00 05/01/17 08:56 (Zofran Inj) 4 mg Q6H PRN IVP 04/29/17 19:30 (Tylenol) 650 mg Q6H PRN PO 04/29/17 19:30 ([place] 5-325 Mg) 1 tab Q4H PRN PO 04/29/17 19:30 05/01/17 12:17 ([place] 10-325 Mg) 1 tab Q4H PRN PO 04/29/17 19:30 05/01/17 00:53 (Amrita-Colace) 1 tab BID PO 04/29/17 21:00 05/01/17 08:56 (Milk Of Magnesia Liq) 30 ml Q12H PRN PO 04/29/17 19:30 (Senokot) 17.2 mg Q12H PRN PO 04/29/17 19:30 (Dulcolax Supp) 10 mg DAILY PRN RECTAL 04/29/17 19:30 (Lactulose Liq) 30 ml DAILY PRN PO 04/29/17 19:30 (Aspirin) 325 mg DAILY PO 04/30/17 09:00 05/01/17 08:56 (Neurontin) 300 mg BID PO 04/29/17 21:00 05/01/17 08:56 Ceftriaxone Sodium 1000 mg/ Sodium Chloride 100 ml @ 200 mls/hr Q24H IV 04/30/17 13:00 05/01/17 12:06 Azithromycin 500 mg/Sodium Chloride 250 ml @ 250 mls/hr Q24H IV 04/30/17 14:00 05/01/17 14:53 (Keppra) 500 mg BID PO 04/30/17 21:00 05/01/17 08:56 (KCl) 20 meq ONCE ONCE PO 05/01/17 19:30 05/01/17 19:31 UNV Allergies Allergies Coded Allergies No Known Allergies (Unverified04/29/17) Exam I&O / VS 05/01/17 05/01/17 05/02/17 15:00 23:00 07:00 Intake Total 100 ml 650 ml Balance 100 ml 650 ml Intake Oral 0 ml IV Total 100 ml 650 ml # Voids 3 Vital Signs Date Time Temp Pulse Resp B/P (MAP) Pulse Ox O2 Delivery O2 Flow Rate FiO2 05/01/17 15:47 97.2 82 20 155/72 (99) 97 05/01/17 12:15 99.2 77 20 126/65 (85) 95 05/01/17 10:24 66 05/01/17 08:37 98.5 70 20 126/58 (80) 95 05/01/17 05:39 97.6 78 17 123/55 (77) 96 05/01/17 02:12 18 05/01/17 01:18 97.8 83 17 163/77 (105) 94 155/75 (101) 04/30/17 22:01 70 04/30/17 21:00 98.0 71 17 130/60 (83) 98 Exam Comments alert, expressive aphasia CN -eom intact, perrl, right upper motor neuron CN 7 1/5 RUE and RLE. 5/5 LUE and LLE Objective Micro and Labs Laboratory Tests Test 05/01/17 09:41 White Blood Count 14.5 Red Blood Count 4.81 Hemoglobin 15.4 Hematocrit 45.2 Mean Corpuscular Volume 94.0 Mean Corpuscular Hemoglobin 31.9 Mean Corpuscular Hemoglobin Concent 34.0 Red Cell Distribution Width 13.9 Platelet Count 226 Mean Platelet Volume 7.8 Neutrophils (%) (Auto) 81.1 Lymphocytes (%) (Auto) 10.1 Monocytes (%) (Auto) 7.8 Eosinophils (%) (Auto) 0.6 Basophils (%) (Auto) 0.4 Neutrophils # (Auto) 11.8 Lymphocytes # (Auto) 1.5 Monocytes # (Auto) 1.1 Eosinophils # (Auto) 0.1 Basophils # (Auto) 0.1 CBC Comment AUTO DIFF Differential Comment AUTO DIFF CONFIRMED Blood Urea Nitrogen 11 Creatinine 0.95 Random Glucose 110 Calcium Level 7.9 Magnesium Level 1.9 Sodium Level 141 Potassium Level 3.4 Chloride Level 108 Carbon Dioxide Level 26.6 Anion Gap 6 Estimat Glomerular Filtration Rate 76 Triglycerides Level 84 Cholesterol Level 132 LDL Cholesterol 51 HDL Cholesterol 64.2 Cholesterol/HDL Ratio 2.05 Thyroid Stimulating Hormone 3rd Gen 2.040 Date/Time Source Procedure Growth Status 05/01/17 09:41 Blood Peripheral Aerobic Blood Culture Pending Received 05/01/17 09:41 Blood Peripheral Anaerobic Blood Culture Pending Received Emigdio Ferguson PhD MD May 01, 2017 19:35
--- NOTE | 2017-05-01 23:47 | MG ---
cc: ALCIDES SHELL MD Sex: M DATE OF STUDY: 05/01/2017 [id number]. DATE OF : 1935 History of mental status changes. DESCRIPTION: Significant frontal myogenic artifact occurring almost throughout the recording. Posterior rhythm otherwise demonstrating 69 Hz activity with mild asymmetric left hemispheric slowing. Limited driving with photic stimulation. Single lead EKG showing sinus rhythm. INTERPRETATION Mild asymmetric left hemispheric slowing with significant frontal myogenic artifact. Clinical correlation. Alcides Shell MD MG/[facility] /8:30 PM /11:42 PM
[2017-05-02] VITALS (8 sets, daily range): BP systolic 122–170; BP diastolic 61–86; PULSE 65–86; RESP 18–20; TEMP 98.4–99.7; O2SAT 94–97
[2017-05-02] MEDS: SODIUM CHLORIDE 0.9% FLUSH 10 ML FLUSH IV FLUSH SCH ×2 (08:14→21:11)
[2017-05-02] MEDS: SODIUM CHLOR 0.9% 1000 ML INJ 1,000 ML IV SCH ×2 (08:14→13:35)
[2017-05-02] MEDS: DOCUSATE SODIUM 50 MG/SENNA 8.6 MG TAB PO SCH ×2 (08:17→21:11)
[2017-05-02] MEDS: ASPIRIN 325 MG TAB PO SCH (08:17)
[2017-05-02] MEDS: GABAPENTIN 300 MG CAP PO SCH ×2 (08:17→21:11)
[2017-05-02] MEDS: levETIRAcetam 500 MG TAB PO SCH ×2 (08:17→21:11)
[2017-05-02 09:06] LABS: BICARBONATE 25.3 MEQ/L (21.0-32.0); MAGNESIUM 1.8 MG/DL (1.5-2.5); POTASSIUM 3.7 MEQ/L (3.5-5.1)
[2017-05-02] MEDS: cefTRIAXone INJ 1,000 MG in SODIUM CHLORIDE 0.9% INJ 100 ML IV SCH (11:40)
[2017-05-02 11:45] LABS: AUTOMATED NEUTROPHIL # 10.6 TH/MM3 (1.8-7.7); BASOPHIL % 0.2 % (0.0-2.0); EOSINOPHIL # 0.1 TH/MM3 (0-0.4); EOSINOPHIL % 0.7 % (0.0-4.0); HEMATOCRIT 41.6 % (39.0-51.0); HEMO FLAGS DIFF FINAL; LYMPH % 7.3 % (9.0-44.0); LYMPHOCYTE # 0.9 TH/MM3 (1.0-4.8); MEAN CELL VOLUME 92.7 FL (80.0-100.0); MEAN CORPUSCULAR HEMOGLOBIN 31.6 PG (27.0-34.0); MEAN CORPUSCULAR HGB CONC 34.1 % (32.0-36.0); MONO % 6.8 % (0.0-8.0); PLATELET COUNT 227 TH/MM3 (150-450); RED BLOOD COUNT 4.48 MIL/MM3 (4.50-5.90); RED CELL DISTRIBUTION WIDTH 13.8 % (11.6-17.2); WHITE BLOOD COUNT 12.5 TH/MM3 (4.0-11.0)
[2017-05-02] MEDS ORDERED: POTASSIUM PHOSPHATE INJ 15 MMOL in SODIUM CHLORIDE 0.9% INJ 150 ML IV ONE (12:00)
[2017-05-02 12:21] LABS: TOTAL BILIRUBIN ADULT 0.6 MG/DL (0.2-1.0)
[2017-05-02 12:25] LABS: INDIRECT BILIRUBIN 0.5 MG/DL (0.0-0.8)
[2017-05-02] MEDS: AZITHROMYCIN INJ 500 MG in SODIUM CHLOR 0.9% 250 ML INJ 250 ML IV SCH (12:51)
[2017-05-02] MEDS: ACETAMINOPHEN/HYDROcodone 325 MG/5 MG TAB PO PRN (15:04)
--- NOTE | 2017-05-02 19:41 | HHI.PR ---
Subjective Remarks Patient seen today around 10 AM. Appears to deny pain. Objective Vital Signs Date Time Temp Pulse Resp B/P (MAP) Pulse Ox O2 Delivery O2 Flow Rate FiO2 05/02/17 16:00 99.7 71 18 135/67 (89) 97 05/02/17 12:45 99.1 65 18 122/61 (81) 97 05/02/17 11:01 84 05/02/17 08:47 98.9 83 18 164/84 (110) 95 05/02/17 04:00 98.4 80 18 135/86 (102) 95 05/02/17 01:35 75 05/02/17 00:00 98.4 86 18 168/83 (111) 94 05/01/17 20:00 99.8 82 18 174/82 (112) 94 I/O 05/01/17 05/01/17 05/01/17 05/02/17 05/02/17 05/02/17 07:00 15:00 23:00 07:00 15:00 23:00 Intake Total 718 ml 100 ml 1287 ml 490 ml Balance 718 ml 100 ml 1287 ml 490 ml Intake Oral 120 ml 0 ml 240 ml IV Total 598 ml 100 ml 1287 ml 250 ml # Voids 4 3 3 # Bowel Movements 1 Result Diagram: 05/02/17 1100 05/02/17 0753 Objective Remarks GENERAL: patient lying in bed. Appears comfortable. Difficult communication, slurred speech ,apparently baseline. No change on exam from yesterday. SKIN: Warm and dry. HEAD: Normocephalic. EYES: No scleral icterus. No injection or drainage. NECK: Supple, trachea midline. No JVD or lymphadenopathy. CARDIOVASCULAR: Regular rate and rhythm without murmurs, gallops, or rubs. RESPIRATORY: Breath sounds equal bilaterally. No accessory muscle use. GASTROINTESTINAL: Abdomen soft, non-tender, nondistended. MUSCULOSKELETAL: No cyanosis, or edema. BACK: Nontender without obvious deformity. No CVA tenderness. A/P Assessment and Plan ==== 05/02/17 //Presyncope. Possible seizure. EEG final read and echocardiogram pending. Echocardiogram apparently had been canceled. Reordered. Patient refused left- sided ultrasound carotids. No bruit on exam. Continue to await results of studies. Appreciate nephrology assistance. Discharge when cleared by neurology. //Continue antibiotics for pneumonia. Leukocytosis improving 12.5. //hypokalemia. Improved. 3.4. Follow-up tomorrow. 81-year-old male, w/ a PMH of CVA w/ Residual Expressive Aphasia and Right- Sided Weakness and Seizure Disorder who was brought to the ER by EMS secondary to near syncopal event. Near Syncope: likely secondary to dehydration, no reported LOC, unclear if head trauma. CT Head w/ prior large left MCA infarct, no acute findings, images reviewed by me. Monitor on telemetry. Continue IVF. Initial trop negative, EKG reviewed w/ no acute ischemia. Check serial cardiac enzymes and EKG to rule out ACS. Check echo. Check Carotid U/S. Consult neurology. Dehydration: GFR 51, BUN/Creatinine normal, U/a negative. IVF for hydration, repeat labs show mild improvement. Hypotension: EMS reporting systolic BP 70's, s/p IVF w/ improvement. Patient denies being on any antihypertensives. +Orthostatic Vital Signs in ER, continue w/ IVF, monitor BP. Hypokalemia/Hypomagnesemia: K+ 2.6, s/p replacement in ER. Mag 1.6, give IV Mag Sulfate 1G x2. Repeat K 2.8 today, give additional IV and po KCl. Repeat labs this afternoon, replace as needed Community Acquired Pneumonia: WBC 14.8K. CXR with possible early developing PNA , images reviewed by me. Will start on IV Rocephin/Azithro. Monitor for improvement. Generalized Weakness: likely multifactorial-dehydration/deconditioning. IVF as above, PT for eval/tx. //Possible pneumonia. With findings on chest x-ray, leukocytosis. Continue antibiotics. Seizure Disorder: Chronic. No reported seizure activity. Resume home medications. DVT Prophylaxis: teds/SCDs Discharge Planning discharge when cleared by neurology. Echocardiogram and EEG pending. PT and OT following Appreciate case management assistance. Mj Kapadia MD May 02, 2017 19:41
--- NOTE | 2017-05-02 20:53 | HHI.PR ---
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 Diagnosis/Plan: Subjective Subjective Comments No acute events reported Active Medications Current Medications Medications (Trade) Dose Ordered Sig/Fidel Route Start Time Stop Time Status Last Admin Sodium Chloride 1,000 ml @ 100 mls/hr Q10H IV 04/29/17 19:23 05/02/17 08:14 (NS Flush) 2 ml UNSCH PRN IV FLUSH 04/29/17 19:30 (NS Flush) 2 ml BID IV FLUSH 04/29/17 21:00 05/01/17 21:48 (Zofran Inj) 4 mg Q6H PRN IVP 04/29/17 19:30 (Tylenol) 650 mg Q6H PRN PO 04/29/17 19:30 ([place] 5-325 Mg) 1 tab Q4H PRN PO 04/29/17 19:30 05/02/17 15:04 ([place] 10-325 Mg) 1 tab Q4H PRN PO 04/29/17 19:30 05/01/17 00:53 (Amrita-Colace) 1 tab BID PO 04/29/17 21:00 05/02/17 08:17 (Milk Of Magnesia Liq) 30 ml Q12H PRN PO 04/29/17 19:30 (Senokot) 17.2 mg Q12H PRN PO 04/29/17 19:30 (Dulcolax Supp) 10 mg DAILY PRN RECTAL 04/29/17 19:30 (Lactulose Liq) 30 ml DAILY PRN PO 04/29/17 19:30 (Aspirin) 325 mg DAILY PO 04/30/17 09:00 05/02/17 08:17 (Neurontin) 300 mg BID PO 04/29/17 21:00 05/02/17 08:17 Ceftriaxone Sodium 1000 mg/ Sodium Chloride 100 ml @ 200 mls/hr Q24H IV 04/30/17 13:00 05/02/17 11:40 Azithromycin 500 mg/Sodium Chloride 250 ml @ 250 mls/hr Q24H IV 04/30/17 14:00 05/02/17 12:51 (Keppra) 500 mg BID PO 04/30/17 21:00 05/02/17 08:17 Allergies Allergies Coded Allergies No Known Allergies (Unverified04/29/17) Exam I&O / VS 05/02/17 05/02/17 05/03/17 15:00 23:00 07:00 Intake Total 490 ml Balance 490 ml Intake Oral 240 ml IV Total 250 ml # Voids 3 Vital Signs Date Time Temp Pulse Resp B/P (MAP) Pulse Ox O2 Delivery O2 Flow Rate FiO2 05/02/17 20:36 99.5 78 20 170/79 (109) 96 05/02/17 16:00 99.7 71 18 135/67 (89) 97 05/02/17 12:45 99.1 65 18 122/61 (81) 97 05/02/17 11:01 84 05/02/17 08:47 98.9 83 18 164/84 (110) 95 05/02/17 04:00 98.4 80 18 135/86 (102) 95 05/02/17 01:35 75 05/02/17 00:00 98.4 86 18 168/83 (111) 94 Exam Comments alert, expressive aphasia CN -eom intact, perrl, right upper motor neuron CN 7 1/5 RUE and RLE. 5/5 LUE and LLE Objective Micro and Labs Laboratory Tests Test 05/02/17 07:53 05/02/17 11:00 Blood Urea Nitrogen 9 Creatinine 0.76 Random Glucose 94 Total Protein 6.0 Albumin 2.7 Calcium Level 7.7 Phosphorus Level 1.6 Magnesium Level 1.8 Alkaline Phosphatase 53 Aspartate Amino Transf (AST/SGOT) 68 Alanine Aminotransferase (ALT/SGPT) 35 Total Bilirubin 0.6 Direct Bilirubin 0.1 Sodium Level 145 Potassium Level 3.7 Chloride Level 110 Carbon Dioxide Level 25.3 Anion Gap 10 Estimat Glomerular Filtration Rate 99 Indirect Bilirubin 0.5 White Blood Count 12.5 Red Blood Count 4.48 Hemoglobin 14.2 Hematocrit 41.6 Mean Corpuscular Volume 92.7 Mean Corpuscular Hemoglobin 31.6 Mean Corpuscular Hemoglobin Concent 34.1 Red Cell Distribution Width 13.8 Platelet Count 227 Mean Platelet Volume 7.3 Neutrophils (%) (Auto) 85.0 Lymphocytes (%) (Auto) 7.3 Monocytes (%) (Auto) 6.8 Eosinophils (%) (Auto) 0.7 Basophils (%) (Auto) 0.2 Neutrophils # (Auto) 10.6 Lymphocytes # (Auto) 0.9 Monocytes # (Auto) 0.9 Eosinophils # (Auto) 0.1 Basophils # (Auto) 0.0 CBC Comment DIFF FINAL Differential Comment Date/Time Source Procedure Growth Status 05/01/17 09:41 Blood Peripheral Aerobic Blood Culture - Preliminary NO GROWTH IN 1 DAY Resulted 05/01/17 09:41 Blood Peripheral Anaerobic Blood Culture - Preliminary NO GROWTH IN 1 DAY Resulted Diagnostic Tests EEG--left hemisphere slow . No epileptiform activity Emigdio Ferguson PhD MD May 02, 2017 20:52
[2017-05-03] VITALS (9 sets, daily range): BP systolic 124–184; BP diastolic 62–88; PULSE 64–78; RESP 16–20; TEMP 98.1–99.4; O2SAT 95–98
[2017-05-03] MEDS: ACETAMINOPHEN/HYDROcodone 325 MG/5 MG TAB PO PRN ×3 (00:12→21:47)
[2017-05-03] MEDS: levETIRAcetam 500 MG TAB PO SCH ×2 (07:42→21:44)
[2017-05-03] MEDS: GABAPENTIN 300 MG CAP PO SCH ×2 (07:42→21:44)
[2017-05-03] MEDS: ASPIRIN 325 MG TAB PO SCH (07:42)
[2017-05-03] MEDS: DOCUSATE SODIUM 50 MG/SENNA 8.6 MG TAB PO SCH ×2 (07:42→21:44)
[2017-05-03] MEDS: SODIUM CHLORIDE 0.9% FLUSH 10 ML FLUSH IV FLUSH SCH ×2 (07:46→22:21)
[2017-05-03] MEDS: cefTRIAXone INJ 1,000 MG in SODIUM CHLORIDE 0.9% INJ 100 ML IV SCH (12:12)
[2017-05-03] MEDS: AZITHROMYCIN INJ 500 MG in SODIUM CHLOR 0.9% 250 ML INJ 250 ML IV SCH (13:19)
--- NOTE | 2017-05-03 15:30 | ECHRPT ---
Indication: Syncope and collapse CONCLUSIONS Normal left ventricular size and wall thickness. The left ventricular systolic function is normal wi th an estimated ejection fraction in the range of 60-65%. Left ventricular diastolic function parameters a re normal. Mild mitral valve regurgitation. There is mild tricuspid valve regurgitation. The estimated pulmonary arterial pressure is 37 mmHg. BP: 184 / 88 HR: 84 Rhythm: Other MEASUREMENTS (Male / Female) Normal Values Technical Quality:Fair 2D ECHO LV Diastolic Diameter PLAX 5.0 cm 4.2 - 5.9 / 3.9 - 5.3 cm LV Systolic Diameter PLAX 3.6 cm IVS Diastolic Thickness 1.1 cm 0.6 - 1.0 / 0.6 - 0.9 cm LVPW Diastolic Thickness 1.1 cm 0.6 - 1.0 / 0.6 - 0.9 cm LV Relative Wall Thickness 0.5 LVOT Diameter 2.0 cm M-MODE Aortic Root Diameter MM 3.5 cm LA Systolic Diameter MM 3.2 cm LA Ao Ratio MM 0.9 AV Cusp Separation MM 2.4 cm DOPPLER AV Peak Velocity 140.0 cm/s AV Peak Gradient 7.8 mmHg LVOT Peak Velocity 90.8 cm/s LVOT Peak Gradient 3.3 mmHg AV Area Cont Eq pk 2.0 cm MR Peak Velocity 310.5 cm/s MR Peak Gradient 38.6 mmHg Mitral E Point Velocity 72.6 cm/s Mitral A Point Velocity 81.4 cm/s Mitral E to A Ratio 0.9 LV E' Lateral Velocity 8.4 cm/s Mitral E to LV E' Lateral Ratio 8.7 LV E' Septal Velocity 8.9 cm/s Mitral E to LV E' Septal Ratio 8.2 TR Peak Velocity 259.0 cm/s TR Peak Gradient 26.8 mmHg Right Atrial Pressure 10.0 mmHg Pulmonary Artery Systolic Pressu 36.8 mmHg Right Ventricular Systolic Press 36.8 mmHg PV Peak Velocity 85.5 cm/s PV Peak Gradient 2.9 mmHg FINDINGS LEFT VENTRICLE Normal left ventricular size and wall thickness. The left ventricular systolic function is normal wi th an estimated ejection fraction in the range of 60-65%. Left ventricular diastolic function parameters a re normal. RIGHT VENTRICLE Normal right ventricular size and systolic function. LEFT ATRIUM The left atrial size is normal. RIGHT ATRIUM The right atrial size is normal. ATRIAL SEPTUM Normal atrial septal thickness without atrial level shunting by limited color doppler interrogation. AORTA The aortic root and proximal ascending aorta are normal in size on limited imaging. MITRAL VALVE Mild mitral valve regurgitation. AORTIC VALVE Trileaflet aortic valve. No aortic valve stenosis or regurgitation. TRICUSPID VALVE There is mild tricuspid valve regurgitation. The estimated pulmonary arterial pressure is 36.8 mmHg. PULMONARY VALVE No pulmonary valve regurgitation or stenosis. VESSELS The inferior vena cava is normal in size. PERICARDIUM No pericardial effusion. Yue Castañeda MD, FACC (Electronically Signed) Final Date:03 May 2017 15:29
[2017-05-03] MEDS ORDERED: LEVE500 PO (16:45)
[2017-05-03] MEDS ORDERED: LEVO750T3 PO (16:46)
--- NOTE | 2017-05-03 16:55 | HHI.PR ---
Subjective Remarks Patient seen today around noon. Appears comfortable. Son says that mentally he is at baseline, however physically he is too weak to go home. Objective Vital Signs Date Time Temp Pulse Resp B/P (MAP) Pulse Ox O2 Delivery O2 Flow Rate FiO2 05/03/17 12:00 98.2 66 20 163/77 (105) 98 05/03/17 10:55 65 05/03/17 08:00 98.1 77 20 165/80 (108) 97 05/03/17 05:00 98.3 71 18 144/72 (96) 97 05/03/17 02:24 78 05/03/17 01:37 66 124/62 (82) 05/03/17 00:24 98.8 75 18 184/88 (120) 95 05/02/17 20:36 99.5 78 20 170/79 (109) 96 I/O 05/02/17 05/02/17 05/02/17 05/03/17 05/03/17 05/03/17 07:00 15:00 23:00 07:00 15:00 23:00 Intake Total 490 ml 155 ml 350 ml Balance 490 ml 155 ml 350 ml Intake Oral 240 ml IV Total 250 ml 155 ml 350 ml # Voids 3 4 Result Diagram: 05/02/17 1100 05/02/17 0753 Objective Remarks GENERAL: patient lying in bed. Appears comfortable. Difficult communication, slurred speech ,apparently baseline. again,No change on exam from yesterday. SKIN: Warm and dry. HEAD: Normocephalic. EYES: No scleral icterus. No injection or drainage. NECK: Supple, trachea midline. No JVD or lymphadenopathy. CARDIOVASCULAR: Regular rate and rhythm without murmurs, gallops, or rubs. RESPIRATORY: Breath sounds equal bilaterally. No accessory muscle use. GASTROINTESTINAL: Abdomen soft, non-tender, nondistended. MUSCULOSKELETAL: No cyanosis, or edema. BACK: Nontender without obvious deformity. No CVA tenderness. A/P Assessment and Plan ==== 05/03/17 //Presyncope. Echocardiogram with no acute or concerning findings. Mild valvular disease. -Discharge on higher dose of Keppra due to suspected seizure. Follow-up with neurology as outpatient. //Continue antibiotics for pneumonia. Stop date 05/07. //hypokalemia. Follow-up ordered for tomorrow. -Discussed with son and daughter. We'll have patient sit up in chair for all meals. 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 Near Syncope: likely secondary to dehydration, no reported LOC, unclear if head trauma. CT Head w/ prior large left MCA infarct, no acute findings, images reviewed by me. Monitor on telemetry. Continue IVF. Initial trop negative, EKG reviewed w/ no acute ischemia. Check serial cardiac enzymes and EKG to rule out ACS. Check echo. Check Carotid U/S. Consult neurology. Dehydration: GFR 51, BUN/Creatinine normal, U/a negative. IVF for hydration, repeat labs show mild improvement. Hypotension: EMS reporting systolic BP 70's, s/p IVF w/ improvement. Patient denies being on any antihypertensives. +Orthostatic Vital Signs in ER, continue w/ IVF, monitor BP. Hypokalemia/Hypomagnesemia: K+ 2.6, s/p replacement in ER. Mag 1.6, give IV Mag Sulfate 1G x2. Repeat K 2.8 today, give additional IV and po KCl. Repeat labs this afternoon, replace as needed Community Acquired Pneumonia: WBC 14.8K. CXR with possible early developing PNA , images reviewed by me. Will start on IV Rocephin/Azithro. Monitor for improvement. Generalized Weakness: likely multifactorial-dehydration/deconditioning. IVF as above, PT for eval/tx. //Possible pneumonia. With findings on chest x-ray, leukocytosis. Continue antibiotics. Seizure Disorder: Chronic. No reported seizure activity. Resume home medications. DVT Prophylaxis: teds/SCDs Discharge Planning discharged SNF. Discussed with case management. Appreciate assistance. Mj Kapadia MD May 03, 2017 16:55
[2017-05-04] VITALS: BP 143/72; PULSE 62; RESP 20; TEMP 98.1; O2SAT 94
[2017-05-04 04:00] VITALS: BP_SYST 176; BP_SYST 186; BP_DIAS 109; BP_DIAS 81; PULSE 80; RESP 20; TEMP 97.9; O2SAT 95
[2017-05-04 05:22] VITALS: PULSE 58
[2017-05-04] MEDS: ACETAMINOPHEN/HYDROcodone 325 MG/5 MG TAB PO PRN (06:34)
[2017-05-04 08:00] VITALS: BP 159/74; PULSE 62; RESP 15; TEMP 98.4; O2SAT 95
[2017-05-04 09:35] VITALS: RESP 18
[2017-05-04] MEDS: SODIUM CHLORIDE 0.9% FLUSH 10 ML FLUSH IV FLUSH SCH (09:42)
[2017-05-04] MEDS: levETIRAcetam 500 MG TAB PO SCH (09:43)
[2017-05-04] MEDS: DOCUSATE SODIUM 50 MG/SENNA 8.6 MG TAB PO SCH (09:43)
[2017-05-04] MEDS: GABAPENTIN 300 MG CAP PO SCH (09:43)
[2017-05-04] MEDS: ASPIRIN 325 MG TAB PO SCH (09:43)
[2017-05-04 10:48] LABS: AUTOMATED NEUTROPHIL # 7.5 TH/MM3 (1.8-7.7); BASOPHIL % 0.5 % (0.0-2.0); EOSINOPHIL # 0.2 TH/MM3 (0-0.4); EOSINOPHIL % 1.9 % (0.0-4.0); HEMATOCRIT 43.5 % (39.0-51.0); HEMO FLAGS DIFF FINAL; LYMPH % 11.5 % (9.0-44.0); LYMPHOCYTE # 1.1 TH/MM3 (1.0-4.8); MEAN CELL VOLUME 92.7 FL (80.0-100.0); MEAN CORPUSCULAR HEMOGLOBIN 32.3 PG (27.0-34.0); MEAN CORPUSCULAR HGB CONC 34.8 % (32.0-36.0); NEUT % 79.1 % (16.0-70.0); PLATELET COUNT 261 TH/MM3 (150-450); RED BLOOD COUNT 4.69 MIL/MM3 (4.50-5.90); RED CELL DISTRIBUTION WIDTH 13.6 % (11.6-17.2); WHITE BLOOD COUNT 9.5 TH/MM3 (4.0-11.0)
[2017-05-04 10:57] LABS: BICARBONATE 28.9 MEQ/L (21.0-32.0); MAGNESIUM 2.3 MG/DL (1.5-2.5); POTASSIUM 3.2 MEQ/L (3.5-5.1)
[2017-05-04] MEDS: cefTRIAXone INJ 1,000 MG in SODIUM CHLORIDE 0.9% INJ 100 ML IV SCH (11:39)
[2017-05-04] MEDS: ACETAMINOPHEN/HYDROcodone 325 MG/10 MG TAB PO PRN (12:04)
[2017-05-04] MEDS ORDERED: POTASSIUM CHLORIDE 10 MEQ CONTROLLED RELEASE TAB PO ONE (12:15)
--- NOTE | 2017-05-05 07:41 | HHI.DS ---
Discharge Summary Admission Date Apr 30, 2017 at 14:27 Discharge Date: May 04, 2017 Admitting Diagnosis Weakness, hypokalemia (1) Near syncope ICD Code: R55 - Syncope and collapse (2) Dehydration ICD Code: E86.0 - Dehydration (3) Hypotension ICD Code: I95.9 - Hypotension, unspecified (4) Hypokalemia ICD Code: E87.6 - Hypokalemia Status: Acute (5) Leukocytosis ICD Code: D72.829 - Elevated white blood cell count, unspecified (6) Generalized weakness ICD Code: R53.1 - Weakness Status: Acute (7) Seizure disorder ICD Code: G40.909 - Epilepsy, unspecified, not intractable, without status epilepticus Procedures EEG. No invasive procedures. Brief History - From Admission Pt is an 81-year-old male, Tim Gonzalezza 37, w/ a 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 Pt had apparent near syncopal event while in grocery store bathroom, unclear if head trauma, no reported LOC. Upon EMS arrival, pt noted to have systolic BP 70's s/p IVF w/ improvement. Unable to obtain history from patient secondary to expressive aphasia, at baseline. On arrival, BP 138/64, HR 86, O2 sat 98% on RA, Afebrile. Orthostatic Vital Signs +. WBC 11.7. K+ 2.6. GFR 51. INR 1.0. UA negative. CT Head with prior large left MCA infarct, no acute findings. CXR with minimal left basilar airspace disease and volume loss consistent with atelectasis, possible early developing pneumonia. S/p IVF in ER w/ improvement. CBC/BMP: 05/04/17 0926 05/04/17 0926 Significant Findings Laboratory Tests Test 05/02/17 07:53 05/02/17 11:00 05/04/17 09:26 Total Protein 6.0 GM/DL (6.4-8.2) Albumin 2.7 GM/DL (3.4-5.0) 2.7 GM/DL (3.4-5.0) Calcium Level 7.7 MG/DL (8.5-10.1) 8.2 MG/DL (8.5-10.1) Phosphorus Level 1.6 MG/DL (2.5-4.9) Aspartate Amino Transf (AST/SGOT) 68 U/L (15-37) Chloride Level 110 MEQ/L (98-107) 110 MEQ/L (98-107) White Blood Count 12.5 TH/MM3 (4.0-11.0) Red Blood Count 4.48 MIL/MM3 (4.50-5.90) Neutrophils (%) (Auto) 85.0 % (16.0-70.0) 79.1 % (16.0-70.0) Lymphocytes (%) (Auto) 7.3 % (9.0-44.0) Neutrophils # (Auto) 10.6 TH/MM3 (1.8-7.7) Lymphocytes # (Auto) 0.9 TH/MM3 (1.0-4.8) Random Glucose 117 MG/DL (74-106) Sodium Level 147 MEQ/L (136-145) Potassium Level 3.2 MEQ/L (3.5-5.1) Estimat Glomerular Filtration Rate 88 ML/MIN (>89) Imaging Last Impressions Shoulder X-Ray 04/30/17 Signed Impressions: Service Date/Time: Sunday, April 30, 2017 15:41 - CONCLUSION: Unremarkable limited examination of the right shoulder. Elder Paz MD Ribs X-Ray 04/30/17 Signed Impressions: Service Date/Time: Sunday, April 30, 2017 15:44 - CONCLUSION: Unremarkable examination of the ribs. Elder Paz MD Carotid Artery Ultrasound 04/30/17 Signed Impressions: Service Date/Time: Sunday, April 30, 2017 10:52 - CONCLUSION: The right side is unremarkable except for mild atherosclerotic disease. The patient refused imaging of the vertebrals and the left carotid system. Elder Paz MD Head CT 04/29/17 8088 Signed Impressions: Service Date/Time: Saturday, April 29, 2017 15:33 - CONCLUSION: 1. 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 2. No acute intracranial abnormality. González Malcolm MD Chest X-Ray 04/29/17 1448 Signed Impressions: Service Date/Time: Saturday, April 29, 2017 14:55 - CONCLUSION: 1. Minimal left basilar airspace disease and volume loss consistent with atelectasis. Developing pneumonia cannot be entirely excluded in the appropriate clinical setting. González Malcolm MD PE at Discharge GENERAL: patient sitting up in bed. Appears comfortable.able to communicate to a certain extent with family, however no verbal communication. Apparently this is baseline. SKIN: Warm and dry. HEAD: Normocephalic. EYES: No scleral icterus. No injection or drainage. NECK: Supple, trachea midline. No JVD. CARDIOVASCULAR: Regular rate and rhythm without murmurs, gallops, or rubs. RESPIRATORY: Breath sounds equal bilaterally. No accessory muscle use. GASTROINTESTINAL: Abdomen soft, non-tender, nondistended. MUSCULOSKELETAL: No cyanosis, or edema. BACK: Nontender without obvious deformity. No CVA tenderness. Pt update on day of discharge Patient seen the morning of 05/04. Appears to be doing well. Son at bedside says the patient appears comfortable and mentally at baseline.good by mouth intake. Patient drinking Ensure. Hospital Course Patient presented with profound hypokalemia, 2.6 which was replaced with improvement. Leukocytosis on admission 11.5 which trended up to 14. Patient had what appeared to be a developing pneumonia on chest x-ray as above, and was treated with antibiotics. Blood culture was ordered by the ER, and this was negative 3 days. Patient had not have any fevers. Syncopal workup with carotid ultrasound, without any stenosis on the right, however patient refused left-sided carotid ultrasound. Echocardiogram performed , shows ejection fraction of 60-65%, only mild mitral valve and tricuspid valve regurgitation. Due to history of seizure, neurosurgery was consult, EEG performed without any seizure activity. Keppra was increased. Patient will need to follow-up with neurology as outpatient. Patient did develop hypernatremia, with continued hypo-kalemia 3.2 on day of discharge. We'll need to encourage free water intake. Recommend repeat labs in 1-2 days at receiving facility. For problem-based summary from most recent progress note, please see below. ==== 05/03/17 //Presyncope. Echocardiogram with no acute or concerning findings. Mild valvular disease. -Discharge on higher dose of Keppra due to suspected seizure. Follow-up with neurology as outpatient. //Continue antibiotics for pneumonia. Stop date 05/07. //hypokalemia. Follow-up ordered for tomorrow. -Discussed with son and daughter. We'll have patient sit up in chair for all meals. 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 Near Syncope: likely secondary to dehydration, no reported LOC, unclear if head trauma. CT Head w/ prior large left MCA infarct, no acute findings, images reviewed by me. Monitor on telemetry. Continue IVF. Initial trop negative, EKG reviewed w/ no acute ischemia. Check serial cardiac enzymes and EKG to rule out ACS. Check echo. Check Carotid U/S. Consult neurology. Dehydration: GFR 51, BUN/Creatinine normal, U/a negative. IVF for hydration, repeat labs show mild improvement. Hypotension: EMS reporting systolic BP 70's, s/p IVF w/ improvement. Patient denies being on any antihypertensives. +Orthostatic Vital Signs in ER, continue w/ IVF, monitor BP. Hypokalemia/Hypomagnesemia: K+ 2.6, s/p replacement in ER. Mag 1.6, give IV Mag Sulfate 1G x2. Repeat K 2.8 today, give additional IV and po KCl. Repeat labs this afternoon, replace as needed Community Acquired Pneumonia: WBC 14.8K. CXR with possible early developing PNA , images reviewed by me. Will start on IV Rocephin/Azithro. Monitor for improvement. Generalized Weakness: likely multifactorial-dehydration/deconditioning. IVF as above, PT for eval/tx. //Possible pneumonia. With findings on chest x-ray, leukocytosis. Continue antibiotics. Seizure Disorder: Chronic. No reported seizure activity. Resume home medications. DVT Prophylaxis: teds/SCDs Pt Condition on Discharge: Good Discharge Disposition: Discharge to SNF Discharge Time: > 30 minutes Discharge Instructions DIET: Follow Instructions for: Heart Healthy Diet Additional Diet Instructions: Encourage free water intake Activities you can perform: Regular-No Restrictions Follow up Referrals: Neurology - 1 Week with Emigdio Ferguson PhD MD New Orders: BASIC METABOLIC PROF - 2 Days New Medications: Levofloxacin (Levofloxacin) 750 Mg Tablet 750 MG PO DAILY for Infection, #4 TAB 0 Refills Changed Medications: Levetiracetam (Keppra) 500 Mg Tab 500 MG PO BID for Control Seizures, #60 TAB 0 Refills (Changed from: DAILY) Continued Medications: Aspirin (Aspirin) 325 Mg Tab 325 MG PO DAILY, #30 TAB 0 Refills Gabapentin (Gabapentin) 300 Mg Cap 300 MG PO BID, #60 CAP 0 Refills Mj Kapadia MD May 05, 2017 07:41
== END 2017-05-04 13:48 | DRG 640 ==
LOC: NEPC 14:31 → NEDA 19:20 → NEPHCDU 22:42 → OBSVTOIN 04-30 14:27 → EDBD 04-30 14:27 → N05B 04-30 20:36
PROVIDERS: ADMIT Internal Medicine; ATTEND Internal Medicine
DX: E87.6 Hypokalemia (principal); J18.9 Pneumonia, unspecified organism; E86.0 Dehydration; E87.0 Hyperosmolality and hypernatremia; I69.351 Hemiplegia and hemiparesis following cerebral infarction affecting right dominant side; G40.909 Epilepsy, unspecified, not intractable, without status epilepticus; I69.320 Aphasia following cerebral infarction; J98.11 Atelectasis; R53.1 Weakness; I10 Essential (primary) hypertension; F32.9 Major depressive disorder, single episode, unspecified; E83.42 Hypomagnesemia; I95.1 Orthostatic hypotension
CPT/HCPCS: 70450; 71010; 71110; 73030; 76937; 80048; 80053; 80061; 80069; 80076; 81001; 83735; 84443; 84484; 85025; 85610; 85730; 87040; 93005; 93306; 93880; 95819; 96360; 96361; G0378; G8987-GP; G8988-GP; J0456; J0696; J3475; J3480; J7030; J7040; J7050